=== PATIENT | female | born 1940 | race Two or more races ===

== ENCOUNTER 2018-04-18 13:01 | Emergency (ER) | payer OTHER ==
[~2018-04-18] VITALS: Ht 160 cm; Wt 72.6 kg
[2018-04-18 13:05] VITALS: Ht 160 cm; Wt 72.6 kg
[2018-04-18 14:00] LABS: ALBUMIN 3.3 g/dL (3.4-5.0); ALKALINE PHOSPHATASE 65 U/L (46-116); ALT/SGPT 28 U/L (14-59); AST/SGOT 33 U/L (15-37); BILIRUBIN TOTAL 0.48 mg/dL (0.20-1.00); CALCIUM 9.1 mg/dL (8.5-10.1); CARBON DIOXIDE 22.6 mmol/L (21-32); CHLORIDE SERUM 107 mmol/L (98-107); CHOLESTEROL 94 mg/dL (<200); CHOLESTEROL/HDL RATIO 2.8; CREATININE SERUM 1.1 mg/dL (0.6-1.0); GLUCOSE SERUM 181 mg/dL (74-106); HDL CHOLESTEROL 33 mg/dL (40-60); LIPASE 255 IU/L (73-393); POTASSIUM SERUM 4.4 mmol/L (3.5-5.1); SODIUM SERUM 142 mmol/L (136-145); TOTAL PROTEIN, SERUM 6.3 g/dL (6.4-8.2); TRIGLYCERIDES 129 mg/dL (<150)
[2018-04-18 14:02] LABS: BASOPHIL % 0.2 % (0-2); PLATELET COUNT 155 x10^3mcL (130-400); RED CELL DISTRIBUTION WIDTH 15.1 % (11.5-14.5)
[2018-04-18 14:19] VITALS: BP 145/86
[2018-04-18 14:25] LABS: FREE T4 1.08 ng/dL (0.76-1.46)
[2018-04-18 14:39] LABS: T3 TOTAL 0.84 ng/mL
== END 2018-04-18 14:41 | disposition left against medical advice (07) ==
LOC: ED 13:01
PROVIDERS: Specialist
DX: I47.1 Supraventricular tachycardia (principal); I10 Essential (primary) hypertension; E11.9 Type 2 diabetes mellitus without complications
CPT/HCPCS: 83880; 84439; J0153; Q0092